=== PATIENT | male | born 1995 | race Caucasian/White ===

== ENCOUNTER 2017-10-03 23:05 | Emergency (ER) | payer MEDICAID ==
[2017-10-03 23:13] VITALS: TEMP 98.2
[2017-10-04] MEDS ORDERED: PROAIR HFA0.09 MG/AC IH (00:27)
[2017-10-04 00:48] VITALS: BP 126/57; PULSE 89
== END 2017-10-04 00:48 | disposition home or self-care (01) ==
LOC: COL.ER 23:05
DX: J45.901 Unspecified asthma with (acute) exacerbation (principal)